=== PATIENT | male | born 1990 | race African-American/Black ===

== ENCOUNTER → 2021-04-11 | Emergency (ER) | payer MEDICAID ==
[~2021-04-11] VITALS: Ht 180.3 cm; Wt 68.0 kg
[~2021-04-11] MED LIST: KETOROLAC 60MG/2ML VIAL IM ONE; ONDANSETRON 4MG ODT PO ONE
[2021-04-11 12:07] VITALS: BP 140/90
== END ==
LOC: ER 12:19
DX: R10.9 Unspecified abdominal pain (principal)
CPT/HCPCS: 99281